=== PATIENT | female | born 1995 | race Caucasian/White ===

== ENCOUNTER 2019-05-09 03:37 | Emergency (ER) | payer MEDICAID ==
[~2019-05-09] VITALS: Ht 160 cm; Wt 91.0 kg
[2019-05-09 06:30] VITALS: BP 136/89
[2019-05-09] MEDS ORDERED: TETRACAINE 0.5% OPHTH DROPS 4ML BOTHEYE ONE (06:30)
[2019-05-09] MEDS ORDERED: IBUPROFEN 600MG TABLET PO ONE (06:30)
[2019-05-09] MEDS ORDERED: FLUORESCEIN SODIUM 1MG/STRIP BOTHEYE ONE (06:30)
== END 2019-05-09 08:35 | disposition home or self-care (01) ==
LOC: ER 03:37
DX: H10.219 Acute toxic conjunctivitis, unspecified eye (principal); J45.909 Unspecified asthma, uncomplicated; F12.10 Cannabis abuse, uncomplicated; Z90.49 Acquired absence of other specified parts of digestive tract
CPT/HCPCS: 99282